=== PATIENT | male | born 1945 | race Caucasian/White ===

== ENCOUNTER 2019-05-01 08:54 | Emergency (ER) | payer OTHER ==
[~2019-05-01] VITALS: Ht 177.8 cm; Wt 109.1 kg
[2019-05-01 08:57] VITALS: BP 110/55; Ht 177.8 cm; Wt 109.1 kg
[2019-05-01] MEDS ORDERED: HYDROCODON-ACE1 EA10 PO (09:28)
== END 2019-05-01 11:15 | disposition home or self-care (01) ==
LOC: D.ER 08:54
DX: M79.18 Myalgia, other site (principal); T14.8XXA Other injury of unspecified body region, initial encounter; W19.XXXA Unspecified fall, initial encounter; Y93.9 Activity, unspecified; Y92.9 Unspecified place or not applicable; M25.561 Pain in right knee; M25.512 Pain in left shoulder; M54.2 Cervicalgia; M79.671 Pain in right foot; J44.9 Chronic obstructive pulmonary disease, unspecified; E11.40 Type 2 diabetes mellitus with diabetic neuropathy, unspecified